=== PATIENT | female | born 1995 | race African-American/Black ===

== ENCOUNTER → 2019-12-11 | Outpatient (CLI) | payer BC ==
[2014-03-16 16:50] VITALS: BP 143/79
--- NOTE | 2019-12-11 13:40 | RAD ---
WRIST 3V RIGHT DATE: 12/11/2019 12:00 AM INDICATION: Right wrist pain COMPARISON: None. FINDINGS: Bones: There is no evidence of acute fracture or dislocation. Joints: The joint spaces are normal. Miscellaneous: None. IMPRESSION: No evidence of acute fracture. Electronically signed by: Jarret Dill MD (12/11/2019 1:37 PM) [id number]
== END | disposition home or self-care (01) ==
LOC: RAD 10:34
PROVIDERS: ATTEND Family Medicine
DX: M25.531 Pain in right wrist (principal)
CPT/HCPCS: 73110